=== PATIENT | female | born 1965 | race American Indian/Alaskan Native ===

== ENCOUNTER 2020-04-02 19:10 | Emergency (ER) | payer SELFPAY ==
--- NOTE | 2020-04-02 20:09 | Event Note ---
ED Screening Note Date of service: 04/02/20 Time: 20:06 ED Screening Note: 54 yo female presents with blood in urine, urinary frequency, burning with urination x 2 days This initial assessment/diagnostic orders/clinical plan/treatment(s) is/are subject to change based on patients health status, clinical progression and re- assessment by fellow clinical providers in the ED. Further treatment and workup at subsequent clinical providers discretion. Patient/guardian urged not to elope from the ED as their condition may be serious if not clinically assessed and managed. Initial orders include: ua
[2020-04-02 21:55] LABS: Bacteria,Urine 1+ /HPF (Negative); Bilirubin,Urine NEG (Negative); Blood,Urine LG (Negative); Color,Urine Yellow (Yellow); Mucus,Urine FEW /HPF; Urobilinogen,Urine < 2.0 mg/dL (<2.0)
[2020-04-02 22:00] LABS: RBC,Urine > 182.0 /HPF (0.0-6.0); WBC,Urine > 182.0 /HPF (0.0-6.0)
[2020-04-02] MEDS ORDERED: SULFAMETHOXAZOLE/TRIMETHOPRIM 800/160MG DS TAB PO ONE (22:23)
[2020-04-02] MEDS ORDERED: PHENAZOPYRIDINE 100 MG TAB PO ONE (22:24)
[2020-04-02 22:53] LABS: Basophils % (Auto) 0.5 % (0.0-1.8); Eosinophils # (Auto) 0.2 K/mm3 (0.0-0.4); Hematocrit 36.4 % (30.3-42.9); Hemoglobin 12.5 gm/dl (10.1-14.3); Lymphocytes # (Auto) 3.2 K/mm3 (1.2-5.4); Lymphocytes % (Auto) 41.3 % (13.4-35.0); Mean Corpuscular HGB Conc 34 % (30-34); Mean Corpuscular Volume 97 fl (79-97); Monocytes # (Auto) 0.4 K/mm3 (0.0-0.8); Monocytes % (Auto) 5.6 % (0.0-7.3); Platelet Count 193 K/mm3 (140-440); Red Blood Count 3.76 M/mm3 (3.65-5.03); Red Cell Distribution Width 13.1 % (13.2-15.2)
--- NOTE | 2020-04-02 22:58 | Emergency Department Report ---
HPI - General Chief Complaint: Abdominal Pain Time Seen by Provider: 04/02/20 22:11 - HPI HPI: This is a 54-year-old female presents to the emergency department with a complaint of some burning with urination and suprapubic discomfort that started earlier today. Patient was seen here about 1 month ago and was diagnosed with a UTI and placed on Keflex. She took this medication as prescribed and says he does not think that the infection completely went away. However, the patient does say that her symptoms that brought her and started this morning. She denies any fever, nausea, vomiting, back pain. She denies any past medical history. She has a primary care physician but has not seen them regarding symptoms. No recent travel or sick contacts at home. ED Past Medical Hx - Past Medical History Previous Medical History?: No - Surgical History Past Surgical History?: Yes Hx Cholecystectomy: Yes Additional Surgical History: hernia repair. ismael saunders - Social History Smoking Status: Never Smoker Substance Use Type: None - Medications Home Medications: Home Medications Medication Instructions Recorded Confirmed Last Taken Type Ondansetron [Zofran Odt] 4 mg PO Q8HR PRN #10 tab.rapdis 03/03/20 Unknown Rx cephALEXin [Keflex] 500 mg PO BID 7 Days #14 cap 03/03/20 Unknown Rx Phenazopyridine [Pyridium] 100 mg PO TID #5 tab 04/02/20 Unknown Rx Sulfamethoxazole/Trimethoprim 1 each PO BID #14 tablet 04/02/20 Unknown Rx [Bactrim DS TAB] ED Review of Systems ROS: Stated complaint: ABDOMINAL PAIN Other details as noted in HPI Comment: All other systems reviewed and negative Constitutional: denies: chills, fever Respiratory: denies: shortness of breath Cardiovascular: denies: chest pain Gastrointestinal: abdominal pain. denies: vomiting Genitourinary: dysuria. denies: discharge Musculoskeletal: denies: back pain, arthralgia Neurological: denies: headache, weakness Physical Exam - Physical Exam Vital Signs: Vital Signs 04/02/20 04/02/20 04/02/20 19:19 22:15 22:23 Temperature 98.0 F 97.9 F Pulse Rate 86 74 Respiratory 18 18 18 Rate Blood Pressure 107/71 Blood Pressure 112/62 [Left] O2 Sat by Pulse 99 100 Oximetry Physical Exam: GENERAL: The patient is well-developed well-nourished. HENT: Normocephalic. Atraumatic. Patient has moist mucous membranes. EYES: Extraocular motions are intact. NECK: Supple. Trachea is midline. CHEST/LUNGS: Clear to auscultation. There is no respiratory distress noted. HEART/CARDIOVASCULAR: Regular. There is no tachycardia. ABDOMEN: Abdomen is soft. There is no abdominal tenderness to palpation. Patient has normal bowel sounds. There is no abdominal distention. SKIN: Skin is warm and dry. NEURO: The patient is awake, alert, and oriented. The patient is cooperative. Normal speech. MUSCULOSKELETAL: There is no tenderness or deformity. There is no evidence of acute injury. ED Course Vital Signs 04/02/20 04/02/20 04/02/20 19:19 22:15 22:23 Temperature 98.0 F 97.9 F Pulse Rate 86 74 Respiratory 18 18 18 Rate Blood Pressure 107/71 Blood Pressure 112/62 [Left] O2 Sat by Pulse 99 100 Oximetry ED Medical Decision Making - Lab Data Result diagrams: 04/02/20 22:28 04/02/20 22:28 - Medical Decision Making This patient presents with a 1 day history of some suprapubic discomfort and dysuria. Urinalysis shows a significant urinary tract infection, as well as some hematuria. Blood work is unremarkable including CBC and metabolic panel. Vital signs stable throughout her ED course including being afebrile. The patient was on Keflex last time. I will start her on Bactrim DS and I have sent a urine culture. Patient will be given a few doses of Pyridium for bladder spasm. The patient has a primary care physician for follow-up and has been given a referral for urology for the recurrent UTI and hematuria. She will return to the ER with any worsening of her symptoms or any acute distress. Critical Care Time: No Critical care attestation.: If time is entered above; I have spent that time in minutes in the direct care of this critically ill patient, excluding procedure time. ED Disposition Clinical Impression: UTI (urinary tract infection) Qualifiers: Urinary tract infection type: acute cystitis Hematuria presence: with hematuria Qualified Code(s): N30.01 - Acute cystitis with hematuria Hematuria Qualifiers: Hematuria type: unspecified type Qualified Code(s): R31.9 - Hematuria, unspecified Disposition: TO HOME OR SELFCARE Is pt being admited?: No Condition: Stable Instructions: Urinary Tract Infection in Women (ED), Acute Hematuria (ED), Abdominal Pain (ED) Additional Instructions: Take the antibiotics as prescribed. I have given you a few doses of Pyridium which is to treat bladder spasm. This medication may turn your urine or other secretions an orange color. I have given you a referral for a local urologist, Dr. Amor, to follow-up regarding the recurrent urinary tract infections and the blood found in your urine. Return to the emergency department with any worsening of your symptoms or any acute distress. Prescriptions: Sulfamethoxazole/Trimethoprim [Bactrim DS TAB] 1 each PO BID #14 tablet Phenazopyridine [Pyridium] 100 mg PO TID #5 tab Referrals: PRIMARY CAREMD [Primary Care Provider] - 3-5 Days YESSICA AMOR MD [Staff Physician] - 3-5 Days Time of Disposition: 23:28
[2020-04-02 23:07] LABS: BUN/Creatinine Ratio 13; Blood Urea Nitrogen 14 mg/dL (7-17); Calcium 9.4 mg/dL (8.4-10.2); Hemolysis Index 3
[2020-04-03 00:14] VITALS: BP 107/60
== END 2020-04-03 00:14 | disposition home or self-care (01) ==
LOC: ED 19:10
DX: N39.0 Urinary tract infection, site not specified (principal)
CPT/HCPCS: 36415; 80048; 81001; 85025; 87086; 99283